=== PATIENT | female | born 1995 ===

== ENCOUNTER 2019-11-22 18:21 | Emergency (ER) | payer SELFPAY ==
[~2019-11-22] VITALS: Ht 172.7 cm; Wt 59.0 kg
--- NOTE | 2019-11-22 18:55 | NUR ---
PT IS IN ROOM #1A. DR GUTIERREZ EVALUATED THE PT.
--- NOTE | 2019-11-22 19:02 | NUR ---
PT WAS D/C'd TO HOME. D/C INSTRUCTIONS GIVEN TO THE PT BY DR GUTIERREZ.
[2019-11-22 19:06] VITALS: BP 128/68
== END 2019-11-22 19:06 | disposition home or self-care (01) ==
LOC: ER 18:25
DX: F41.1 Generalized anxiety disorder (principal); R00.0 Tachycardia, unspecified; Z91.048 Other nonmedicinal substance allergy status
CPT/HCPCS: A4663